=== PATIENT | female | born 1975 | race Caucasian/White ===

== ENCOUNTER → 2023-05-01 07:33 | Outpatient (REF) | payer OTHER, SELFPAY | LOC: EMG 07:33 | PROVIDERS: ATTENDING PHYSICIAN Psychiatry & Neurology Neurology; FAMILY PHYSICIAN Physician Assistant Medical | DX: R20.2 Paresthesia of skin (principal) | CPT/HCPCS: 95886; 95912 ==

== ENCOUNTER → 2023-11-06 08:29 | Outpatient (REF) | payer OTHER, SELFPAY | LOC: RAD 08:29 | PROVIDERS: ATTENDING PHYSICIAN Orthopaedic Surgery; FAMILY PHYSICIAN Physician Assistant Medical | DX: M84.352A Stress fracture, left femur, initial encounter for fracture (principal) | CPT/HCPCS: 78315; A9503 ==

== ENCOUNTER → 2023-12-04 08:01 | Outpatient (REF) | payer OTHER, SELFPAY | LOC: HWRAD 08:01 | PROVIDERS: ATTENDING PHYSICIAN Orthopaedic Surgery; FAMILY PHYSICIAN Physician Assistant Medical | DX: Z96.642 Presence of left artificial hip joint (principal); M79.605 Pain in left leg | CPT/HCPCS: 73700 ==

== ENCOUNTER 2023-12-07 15:27 | Emergency (ER) | payer OTHER, SELFPAY ==
[2023-12-07 15:35] VITALS: BP 136/75
--- NOTE | 2023-12-07 16:25 | ED.GENMED ---
History of Present Illness
General
Chief Complaint: Abdominal Pain
Source: patient
Exam Limitations: none
Time Seen by Provider: 12/07/23 15:54
Nursing documentation reviewed up to this point in time: agreed with
Travel History
Have you had any contact with someone who has COVID-19?: No
Do you have any symptoms of coronavirus? Fever > 100 degrees, chills, cough, shortness of breath, sore throat, loss of taste or smell, muscle aches, or headache?: No
History of Present Illness
History of Present Illness:
Patient to ED with complaint of LUQ abd pain. Pain has been ongoing x 1 week, worse this weekend. Denies fever/chill. +nausea, no vomiting or diarrhea. Brought self to ED for eval.
Past History
Past History
ED Past Medical History: Other (one previous concussion, migraines)
ED Past Surgical History: Gynecological (partial hysterectome) and Orthopedic (LTHR)
Social History
Tobacco: Non-smoker
Alcohol: None
Drug: None
Personal:
Living: with family
Employment: Employed
Review of Systems
Review of Systems
Allergies reviewed?: Yes
All Other Systems: ROS reviewed and negative except as documented in HPI and ROS
Constitutional: Reports no symptoms
EENT: Reports no symptoms
Respiratory: Reports no symptoms
Cardiac: Reports no symptoms
ABD/GI: Reports abdominal pain and nausea
: Reports no symptoms
Skin: Reports no symptoms
Neurological: Reports no symptoms
Psychiatric: Reports no symptoms
Phy Exam
General Physical Exam
General Presentation: well appearing and mild distress
General age: appears stated age
General Skin: warm and dry
General Habitus: normal
General Mental: alert
General Hydration: appears well hydrated
Gastrointestinal Exam
Gastrointestinal Exam: normal bowel sounds, soft, no organomegaly, non distended and no cva tenderness
Palpation: left upper quadrant: Moderate tenderness, left lower quadrant: Moderate tenderness, right upper quadrant: No tenderness and right lower quadrant: Moderate tenderness
Musculoskeletal Exam
Musculoskeletal Exam: full ROM
Skin Exam
Skin Exam: normal color and warm/dry
Psychiatric Exam
Psychiatric Exam: normal mood/affect
Course
Orders/Labs/Results
Orders:
Orders
12/07/23 15:37
EKG [Electrocardiogram (*1)] Urgent
Reason for Study: Abdominal Pain
EKG- Treatment ONCE
12/07/23 16:25
CT Abd/pel W Iv And Oral Contr Urgent
Comment:
Reason For Exam: left abd pain
Iohexol [Omnipaque] See Protocol PO NOW STA
12/07/23 16:30
Complete Blood Count/With Diff Urgent
Comprehensive Metabolic Panel Urgent
Lipase Urgent
Urinalysis Reflex To Culture Urgent
Date Specimen was Collected: 12/07/23
Time Specimen was Collected: 16:25
12/07/23 20:03
Amoxicillin 875 mg/Clav 125 mg [Augmentin 875 mg/125 mg] 1 tablet PO NOW STA
Abnormal Lab Results
12/07/23
16:30
MPV 10.7 H fL
(7.4-10.4)
Absolute Neuts (auto) 6.7 H 10^3/uL
(1.4-6.5)
Lymphocytes % 17.9 L %
(20.5-51.1)
Sodium 134 L mmol/L
(135-145)
Glucose 102 H mg/dl
(70-99)
12/07/23 16:30
12/07/23 16:30
Vital Signs
Initial and Last Documented VS:
Initial Vital Signs
Temp Pulse Resp BP Pulse Ox
97.9 F 102 17 136/75 99
12/07/23 15:35 12/07/23 15:35 12/07/23 15:35 12/07/23 15:35 12/07/23 15:35
Last Documented Vital Signs
Temp Pulse Resp BP Pulse Ox
97.9 F 70 15 125/71 98
12/07/23 15:35 12/07/23 20:00 12/07/23 20:00 12/07/23 20:00 12/07/23 20:00
*Radiology
Radiology exam reviewed: radiology read reviewed
*Pulse Oximetry
Patient hypoxic: no
*Critical Care Note
Total Time (30-74mins, 75-104mins- exclusive of procedures): Not Applicable
ED Attending Note
-
Portions of this chart may have been created with voice recognition software.� Occasional wrong word or��sound alike� substitutions may have occurred due to the inherent limitations of voice recognition software.
Discharge Plan
Departure
Patient Disposition: Home (Routine Discharge)
Date of Disposition: 12/07/23
Time of Disposition: 20:03
Patient with high blood pressure during this ER visit?: No
Condition: Good
Covid-19: Not Applicable
Discharge Problem:
Diverticulitis
Instructions: Clear Liquid Diet, Diverticulitis (DC)
Prescriptions:
New
amoxicillin-pot clavulanate 875-125 mg tablet
1 tab PO BID Qty: 20 0RF
No Action
famotidine 40 mg Tablet
40 mg PO DAILY
topiramate 200 mg Capsule,Extended Release 24hr
200 mg PO DAILY
Referrals:
Reg Marie PA-C [Family Provider] - Follow up in 2-3 days
Activity Restrictions/Additional Instructions:
Return to the emergency department immediately for fever/chills, increasing pain, vomiting, or for any further concerns.
Interventions
Interventions:
*Risk Screen - Suicide Last Done: 12/07/23 15:35
*General Assessment Last Done: 12/07/23 15:35
*Neglect/Abuse Screening Last Done: 12/07/23 15:35
*ED COVID-19 Vaccine History Last Done: 12/07/23 15:35
*Nursing Disposition Last Done: 12/07/23 20:30
TD-Iuarce-Fltjtflayw Assessment Last Done: 12/07/23 17:25
Discharge Date and Time
Discharge Date/Time: 12/07/23 20:31
Print Language: UPPER SORBIAN
[2023-12-07] MEDS: OMNIPAQUE 50 ML PO (16:31)
[2023-12-07 16:36] VITALS: BP 117/71
[2023-12-07 16:46] LABS: Urine Albumin Negative (Neg - Trace); Urine Bilirubin Negative (Negative); Urine Character Clear (Clear); Urine Color Yellow; Urine Glucose Negative (Negative); Urine Ketone Negative (Negative); Urine Leukocyte Negative (Negative); Urine Nitrite Negative (Negative); Urine Occult Blood Negative (Negative); Urine Specific Gravity 1.015 (<1.030); Urine Urobilinogen Negative (Neg - 1+)
[2023-12-07 16:47] LABS: % Basophils 0.4 % (0-2); % Immature Granulocytes 0.3 % (0-0.5); % Lymphocytes 17.9 % (20.5-51.1); % Monocytes 5.6 % (1.7-9.3); % Neutrophils 74.8 % (42.2-75.2); Absolute Eosinophils 0.1 10^3/uL (0-0.7); Absolute Lymphocytes 1.6 10^3/uL (1.2-3.4); Absolute Monocytes 0.5 10^3/uL (0.1-0.6); Absolute Neutrophils 6.7 10^3/uL (1.4-6.5); Hematocrit 40.4 % (37.0-47.0); Hemoglobin 14.5 g/dL (12.0-16.0); Mean Corp Hgb Conc. 35.9 g/dL (33.0-37.0); Mean Corpuscular Volume 83.6 fL (81.0-99.0); Mean Platelet Volume 10.7 fL (7.4-10.4); Nucleated Red Blood Cells % 0 %; Platelet Count 217 10^3/uL (130-400); Red Blood Cell Count 4.83 10^6/uL (4.20-5.40); Red Cell Dist. Width 12.9 % (11.5-14.5)
[2023-12-07 16:58] LABS: ALT (SGPT) 33 U/L (0-35); AST (SGOT) 26 U/L (14-36); Albumin 4.3 g/dl (3.5-5.0); Alkaline Phosphatase 70 U/L (38-126); Blood Urea Nitrogen 13 mg/dl (7-17); Calcium 9.3 mg/dl (8.4-10.2); Carbon Dioxide 26 mmol/L (22-30); Chloride 104 mmol/L (98-107); Glucose 102 mg/dl (70-99); Lipase 125 U/L (23-300); Potassium 3.7 mmol/L (3.5-5.1); Sodium 134 mmol/L (135-145); Total Bilirubin 1.2 mg/dl (0.2-1.3); eGFR > 60.00
[2023-12-07 17:00] VITALS: BP 114/66
[2023-12-07 18:00] VITALS: BP 115/80
[2023-12-07 19:21] VITALS: BP 122/59
[2023-12-07 20:00] VITALS: BP 125/71
[2023-12-07] MEDS: AUGMENTIN 875 MG/125 MG 1 TABLET PO (20:21)
== END 2023-12-07 20:31 | disposition home or self-care (01) ==
LOC: EMR 15:27
PROVIDERS: Nurse Practitioner; EMERGENCY PHYSICIAN Emergency Medicine; FAMILY PHYSICIAN Physician Assistant Medical
DX: K57.32 Diverticulitis of large intestine without perforation or abscess without bleeding (principal); R11.0 Nausea; G43.909 Migraine, unspecified, not intractable, without status migrainosus; Z87.820 Personal history of traumatic brain injury; Z88.8 Allergy status to other drugs, medicaments and biological substances
CPT/HCPCS: 99285; 74177; 80053; 81003; 83690; 85025; 93005; Q9967

== ENCOUNTER → 2024-02-12 06:50 | Outpatient (REF) | payer OTHER, SELFPAY | LOC: RAD 06:50 | PROVIDERS: ATTENDING PHYSICIAN Nurse Practitioner Adult Health | DX: I87.2 Venous insufficiency (chronic) (peripheral) (principal) | CPT/HCPCS: 93922; 93970 ==

== ENCOUNTER → 2024-04-22 09:23 | Outpatient (REF) | payer OTHER, SELFPAY ==
[2024-04-22 15:39] LABS: Mumps Virus IgG Positive; Rubeola (Measles) IgG Positive; Varicella Zoster IgG (VZV) Positive
[2024-04-22 19:07] LABS: Rubella Positive
[2024-04-24 07:10] LABS: Quantiferon Mitogen minus NIL 9.91 IU/mL; Quantiferon NIL 0.09 IU/mL; Quantiferon Plus TB1 minus NIL 0.02 IU/mL (<=0.34); Quantiferon TB Gold Plus Negative (Negative)
== END ==
LOC: REG 09:23
PROVIDERS: ATTENDING PHYSICIAN Nurse Practitioner Family; FAMILY PHYSICIAN Physician Assistant Medical
DX: Z23 Encounter for immunization (principal)
CPT/HCPCS: 36415; 86480; 86735; 86762; 86765; 86787

== ENCOUNTER → 2024-06-18 07:01 | Outpatient (REF) | payer OTHER, SELFPAY | LOC: RAD 07:01 | PROVIDERS: ATTENDING PHYSICIAN Student in an Organized Health Care Education/Training Program; FAMILY PHYSICIAN Physician Assistant Medical | DX: K57.32 Diverticulitis of large intestine without perforation or abscess without bleeding (principal); R10.32 Left lower quadrant pain | CPT/HCPCS: 74177; Q9967 ==

== ENCOUNTER 2024-07-06 15:25 | Emergency (ER) | payer OTHER, SELFPAY ==
[2024-07-06 15:32] VITALS: BP 144/75
--- NOTE | 2024-07-06 15:32 | ED.GENMED ---
ED Provider Triage
<Miranda Leiva PA-C - Last Filed: 07/06/24 15:37>
-
Patient seen by provider in Triage?: Seen in Triage
Attestation: A medical screening examination has been initiated by a qualified medical provider. Based on the assessment performed at this time, it has been determined that an emergent medical condition may exist and the patient has been informed
that further medical evaluation and possible additional diagnostic testing may be needed.
HPI: 49yoF here with LLQ pain. Has been having issues since May. CT abd on 06/18 showed colitis. GI started on Cipro/Flagyl last week for presumed diverticulitis. Here with ongoing pain. No f/c.
GENERAL: Alert , in no apparent distress
EYE: No visual abnormalities.
NECK: Trachea midline
ENT: No visible abnormalities.
LUNGS: No acute respiratory distress
NEUROLOGICAL: Alert and oriented
SKIN: Skin intact. No visible changes.
MUSCULOSKELETAL: Moving extremities normally
PSYCH: Normal and appropriate interaction.
This is a medical evaluation conducted in person to initiate diagnostic evaluation and provide initial therapeutics. Please see further documentation by the treating clinician.
Abdominal labs and CT abdomen with IV/PO contrast ordered.
History of Present Illness
<Miranda Leiva PA-C - Last Filed: 07/06/24 15:37>
General
Chief Complaint: Abdominal Pain
Time Seen by Provider: 07/06/24 19:22
<JUAN R Back - Last Filed: 07/06/24 19:49>
General
Source: patient
Exam Limitations: none
History of Present Illness
History of Present Illness:
This is a 49 year old female that comes in with c/o left sided abd pain. States that she has had increased abd pain for the past few days. States that she is being treated for Diverticulitis. Last week she was started on Cipro and Flagyl on
Friday. States that the pain was worse and she can't eat much. States that she has had diarrhea but had stool testing and this was negative. Denies any fever, chills, chest pain, SOB, nausea, vomiting, headache, dizziness, urinary burning.
Past History
<Miranda Leiva PA-C - Last Filed: 07/06/24 15:37>
Past History
ED Past Medical History: Other (one previous concussion, migraines)
ED Past Surgical History: Gynecological (partial hysterectome) and Orthopedic (LTHR)
Social History
Tobacco: Non-smoker
Alcohol: None
Drug: None
Personal:
Living: with family
Employment: Employed
<JUAN R Back - Last Filed: 07/06/24 19:49>
Past History
ED Past Medical History: Other (Diverticulitis, Migraines, Concussion)
ED Past Surgical History: Gynecological (Partial hysterectomy) and Orthopedic (left hip replacement)
Review of Systems
<JUAN R Back - Last Filed: 07/06/24 19:49>
Review of Systems
All Other Systems: ROS reviewed and negative except as documented in HPI and ROS
Constitutional: Reports no symptoms; Denies fever or chills
EENT: Reports no symptoms
Respiratory: Reports no symptoms; Denies cough or trouble breathing
Cardiac: Reports no symptoms; Denies chest pain
ABD/GI: Reports abdominal pain and diarrhea; Denies nausea or vomiting
: Reports no symptoms; Denies dysuria, frequency or urgency
Musculoskeletal: Reports no symptoms
Skin: Reports no symptoms
Neurological: Reports no symptoms; Denies dizzy or headache
Psychiatric: Reports no symptoms
Phy Exam
<JUAN R Back - Last Filed: 07/06/24 19:49>
General Physical Exam
General Presentation: well appearing and no apparent distress
General age: appears stated age
General Skin: warm and dry
General Habitus: normal
General Mental: alert
General Hydration: appears well hydrated
ENT Exam
ENT Exam: TM's normal, pharynx normal and neck supple
Eye Exam
Eye Exam: EOMI
Cardiovascular Exam
Cardiovascular Exam: regular rate/rhythm, no edema, no murmur and normal peripheral pulses
Pulmonary Exam
Pulmonary Exam: lungs clear, no respiratory distress, no rales, chest non tender, no crackles, no rhonchi, no wheezing and no cough
Gastrointestinal Exam
Gastrointestinal Exam: normal bowel sounds, soft, no organomegaly, no pulsatile mass, non distended and tender (Left lower quadrant tenderness with palpation)
Musculoskeletal Exam
Musculoskeletal Exam: full ROM and no edema
Skin Exam
Skin Exam: normal color, warm/dry, no rash and no petechia
Course
<Miranda Leiva PA-C - Last Filed: 07/06/24 15:37>
Orders/Labs/Results
Orders:
Orders
07/06/24 15:36
CT Abd/pel W Iv And Oral Contr Urgent
Comment:
Reason For Exam: LLQ pain
Iohexol [Omnipaque] See Protocol PO NOW STA
07/06/24 15:43
Complete Blood Count/With Diff Urgent
Comprehensive Metabolic Panel Urgent
Lipase Urgent
Abnormal Lab Results
07/06/24
15:43
MPV 11.0 H fL
(7.4-10.4)
Carbon Dioxide 21 L mmol/L
(22-30)
Glucose 167 H mg/dl
(70-99)
ALT 36 H U/L
(0-35)
07/06/24 15:43
07/06/24 15:43
Vital Signs
Initial and Last Documented VS:
Initial Vital Signs
Temp Pulse Resp BP Pulse Ox
98.6 F 114 19 144/75 99
07/06/24 15:32 07/06/24 15:32 07/06/24 15:32 07/06/24 15:32 07/06/24 15:32
Last Documented Vital Signs
Temp Pulse Resp BP Pulse Ox
98.6 F 114 19 144/75 99
07/06/24 15:32 07/06/24 15:32 07/06/24 15:32 07/06/24 15:32 07/06/24 15:32
<JUAN R Back - Last Filed: 07/06/24 19:49>
Orders/Labs/Results
Orders:
Orders
07/06/24 15:36
CT Abd/pel W Iv And Oral Contr Urgent
Comment:
Reason For Exam: LLQ pain
Iohexol [Omnipaque] See Protocol PO NOW STA
07/06/24 15:43
Complete Blood Count/With Diff Urgent
Comprehensive Metabolic Panel Urgent
Lipase Urgent
Abnormal Lab Results
07/06/24
15:43
MPV 11.0 H fL
(7.4-10.4)
Carbon Dioxide 21 L mmol/L
(22-30)
Glucose 167 H mg/dl
(70-99)
ALT 36 H U/L
(0-35)
07/06/24 15:43
07/06/24 15:43
Hyperglycemia, ALT very slightly elevlated. Lipase normal at 154
Vital Signs
Initial and Last Documented VS:
Initial Vital Signs
Temp Pulse Resp BP Pulse Ox
98.6 F 114 19 144/75 99
07/06/24 15:32 07/06/24 15:32 07/06/24 15:32 07/06/24 15:32 07/06/24 15:32
Last Documented Vital Signs
Temp Pulse Resp BP Pulse Ox
98.6 F 114 19 144/75 99
07/06/24 15:32 07/06/24 15:32 07/06/24 15:32 07/06/24 15:32 07/06/24 15:32
<JUAN R Back - Last Filed: 07/06/24 19:49>
MDM/Problems Addressed
Differential Diagnosis Includes:
worsening Diverticulitis. abd abscess, abd pain due to degenerative disc
MDM/Problems Addressed:
This is a 49 year old female that come sin with c/o left lower abd pain. States that she is being treated for Diverticulitis since last Friday. Patient is on Cipro and FLagyl.
Will check labs and get CT scan.
Explained to patient that her CT scan is normal. Blood work shows that her blood sugar is elevated but this was nonfasting. Patient just had stool culture done and they were normal. Encouraged patient to stay away form milk and mil products as long
as she has diarrhea. Follow up with the family doctor. Return with fever, increased or changing pain, or any other concerns.
Chronic conditions affecting care:
Diverticulitis.
Acute Exacerbation and/or Progression of Chronic Illness:
Diverticulitis
<JUAN R Back - Last Filed: 07/06/24 19:49>
*Radiology
Radiology exam reviewed: radiology read reviewed (CT-NO acute pathhology of the abdomen or pelvis identified. Stable small hepatic cyst. )
*Pulse Oximetry
Patient hypoxic: no
*EKG
Interpreted by ED Provider?: NA
Rate: EKG- N/A
*Dolly Driver Interpretation
Rate: Dolly Driver- N/A
*Critical Care Note
Total Time (30-74mins, 75-104mins- exclusive of procedures): Not Applicable
ED Attending Note
<Miranda Leiva PA-C - Last Filed: 07/06/24 15:37>
-
Portions of this chart may have been created with voice recognition software.� Occasional wrong word or��sound alike� substitutions may have occurred due to the inherent limitations of voice recognition software.
Discharge Plan
Departure
Disposition: Home (Routine Discharge)
Date of Disposition: 07/06/24
Time of Disposition: 19:47
Patient with high blood pressure during this ER visit?: Yes
Condition: Good
Covid-19: Not Applicable
Discharge Problem:
Abdominal pain
Instructions: Abdominal Pain, BLOOD PRESSURE
Prescriptions:
No Action
famotidine 40 mg Tablet
40 mg PO DAILY
topiramate 200 mg Capsule,Extended Release 24hr
200 mg PO DAILY
amoxicillin-pot clavulanate 875-125 mg tablet
1 tab PO BID Qty: 20 0RF
Additional Instructions:
As discussed, your blood work shows that your blood sugar is elevated. Please increase your water intake to 8-8oz glasses daily. Continue with the antibiotics that you are taking. Your CT of the abd/pelvis is negative for any acute disease. There
are some bony degenerative changes noted. This may also be causing your abd pain as the nerves form the back wrap around to the abd and can cause abd pain. You may use Tylenol or Ibuprofen for pain. Please stay away from milk and milk products as
long as you have diarrhea. Follow up with the family doctor for further evaluation. IF YOU HAVE FEVER, INCREASED OR CHANGING PAIN, OR YOU HAVE ANY OTHER CONCERNS PLEASE RETURN TO THE EMERGENCY ROOM.
Interventions
Interventions:
*Risk Screen - Suicide Last Done: 07/06/24 15:35
*General Assessment Last Done: 07/06/24 15:35
*Neglect/Abuse Screening Last Done: 07/06/24 15:35
Discharge Date and Time
Print Language: BULGARIAN
[2024-07-06] MEDS: OMNIPAQUE 50 ML PO (15:39)
[2024-07-06 16:05] LABS: % Basophils 0.8 % (0-2); % Eosinophils 1.7 % (0-6); % Immature Granulocytes 0.3 % (0-0.5); % Lymphocytes 25.5 % (20.5-51.1); % Monocytes 7.9 % (1.7-9.3); % Neutrophils 63.8 % (42.2-75.2); Absolute Basophils 0.1 10^3/uL (0-0.2); Absolute Eosinophils 0.1 10^3/uL (0-0.7); Absolute Lymphocytes 1.7 10^3/uL (1.2-3.4); Absolute Monocytes 0.5 10^3/uL (0.1-0.6); Absolute Neutrophils 4.2 10^3/uL (1.4-6.5); Hematocrit 42.1 % (37.0-47.0); Hemoglobin 14.7 g/dL (12.0-16.0); Mean Corp Hgb Conc. 34.9 g/dL (33.0-37.0); Mean Corpuscular Hgb 29.8 pg (27.0-31.0); Mean Corpuscular Volume 85.4 fL (81.0-99.0); Nucleated Red Blood Cells % 0 %; Platelet Count 247 10^3/uL (130-400); Red Blood Cell Count 4.93 10^6/uL (4.20-5.40); Red Cell Dist. Width 13.3 % (11.5-14.5); White Blood Cell Count 6.6 10^3/uL (4.8-10.8)
[2024-07-06 16:18] LABS: ALT (SGPT) 36 U/L (0-35); AST (SGOT) 36 U/L (14-36); Albumin 4.5 g/dl (3.5-5.0); Alkaline Phosphatase 63 U/L (38-126); Blood Urea Nitrogen 13 mg/dl (7-17); Calcium 9.1 mg/dl (8.4-10.2); Carbon Dioxide 21 mmol/L (22-30); Chloride 106 mmol/L (98-107); Glucose 167 mg/dl (70-99); Lipase 154 U/L (23-300); Potassium 3.7 mmol/L (3.5-5.1); Sodium 139 mmol/L (135-145); Total Bilirubin 0.7 mg/dl (0.2-1.3); eGFR > 60.00
[2024-07-06 20:00] VITALS: BP 117/70
== END 2024-07-06 20:05 | disposition home or self-care (01) ==
LOC: EMR 15:25
PROVIDERS: Physician Assistant; EMERGENCY PHYSICIAN Emergency Medicine; FAMILY PHYSICIAN Physician Assistant Medical
DX: R10.32 Left lower quadrant pain (principal)
CPT/HCPCS: 99284; 74177; 80053; 83690; 85025; Q9967

== ENCOUNTER 2024-09-06 06:27 | Day surgery (SDC) | payer OTHER, SELFPAY | END 2024-09-06 16:36 | disposition home or self-care (01) | LOC: GI 06:27 | PROVIDERS: ATTENDING PHYSICIAN Student in an Organized Health Care Education/Training Program | DX: R93.3 Abnormal findings on diagnostic imaging of other parts of digestive tract (principal); K64.4 Residual hemorrhoidal skin tags; K64.0 First degree hemorrhoids; K57.30 Diverticulosis of large intestine without perforation or abscess without bleeding; K57.32 Diverticulitis of large intestine without perforation or abscess without bleeding; R19.4 Change in bowel habit | CPT/HCPCS: 45378 ==

== ENCOUNTER → 2024-11-25 12:42 | Outpatient (REF) | payer OTHER, SELFPAY ==
[2024-11-25 13:00] VITALS: BP 110/68; BP_SYST 68
== END ==
LOC: RADI 12:42
PROVIDERS: ATTENDING PHYSICIAN Orthopaedic Surgery Hand Surgery; FAMILY PHYSICIAN Physician Assistant Medical
DX: M25.511 Pain in right shoulder (principal); M19.011 Primary osteoarthritis, right shoulder
CPT/HCPCS: 64490

== ENCOUNTER 2025-01-31 06:30 | Day surgery (SDC) | payer OTHER, SELFPAY ==
[2025-01-31 13:04] LABS: Glucose - Point of Care 93 mg/dl (70-99)
== END 2025-01-31 15:18 | disposition home or self-care (01) ==
LOC: GI 06:30
PROVIDERS: ATTENDING PHYSICIAN Student in an Organized Health Care Education/Training Program
DX: Z12.11 Encounter for screening for malignant neoplasm of colon (principal); K64.4 Residual hemorrhoidal skin tags; K57.30 Diverticulosis of large intestine without perforation or abscess without bleeding; K64.0 First degree hemorrhoids; Z80.0 Family history of malignant neoplasm of digestive organs
CPT/HCPCS: G0105; 82962

== ENCOUNTER → 2025-03-10 09:38 | Outpatient (REF) | payer OTHER, SELFPAY ==
[2025-03-10 10:18] LABS: Hematocrit 43.0 % (37.0-47.0); Hemoglobin 14.7 g/dL (12.0-16.0); Mean Corp Hgb Conc. 34.2 g/dL (33.0-37.0); Mean Corpuscular Volume 86.9 fL (81.0-99.0); Nucleated Red Blood Cells % 0 %; Platelet Count 227 10^3/uL (130-400); Red Cell Dist. Width 13.3 % (11.5-14.5)
[2025-03-10 10:54] LABS: Blood Urea Nitrogen 12 mg/dl (7-17); Calcium 9.9 mg/dl (8.4-10.2); Carbon Dioxide 23 mmol/L (22-30); Chloride 109 mmol/L (98-107); Glucose 108 mg/dl (70-99); Magnesium 2.2 mg/dl (1.6-2.3); Potassium 4.4 mmol/L (3.5-5.1); Sodium 141 mmol/L (135-145); eGFR > 60.00
[2025-03-10 12:09] LABS: TSH 1.13 uIU/ml (0.47-4.68)
== END ==
LOC: REG 09:38
PROVIDERS: ATTENDING PHYSICIAN Internal Medicine Cardiovascular Disease; FAMILY PHYSICIAN Physician Assistant Medical
DX: R00.2 Palpitations (principal)
CPT/HCPCS: 36415; 80048; 83735; 84443; 85025

== ENCOUNTER 2025-04-07 10:27 | Emergency (ER) | payer OTHER, SELFPAY ==
[2025-04-07 10:29] VITALS: BP 147/79
--- NOTE | 2025-04-07 10:53 | ED.GENMED ---
History of Present Illness
General
Chief Complaint: Abdominal Symptoms
Time Seen by Provider: 04/07/25 10:50
History of Present Illness
History of Present Illness:
FOCUSED PAST MEDICAL HISTORY
- Diverticular disease
REVIEW OF OLD RECORDS
- The patient had colonoscopy as follow-up of diverticulitis (had in December 2023 and in June 2024) and mild diverticulosis was noted at that time along with nonbleeding internal hemorrhoid. She had a CT in July 2024 that showed no sign of
diverticulitis.
Note:
CHIEF COMPLAINT(S)
Abdominal pain.
HISTORY OF PRESENT ILLNESS
The patient is a 49-year-old female presenting with approximately 10 days of abdominal pain, primarily located in the left lower quadrant. She describes the character of the pain as similar to previous episodes she has experienced. She contacted her
community relations representative, who recommended a liquid diet. Despite this, the pain has been worsening. She reports no vomiting or diarrhea. There is no possibility of due to a prior hysterectomy.
PAST MEDICAL AND SURGICAL HISTORY
History of hysterectomy.
EXTERNAL RECORDS REVIEWED
According to previous chemistry results, her white blood cell count is normal at 6.0. Other chemistries are unremarkable. Imaging results were obtained, although specifics werent discussed.
DIFFERENTIAL DIAGNOSIS
The Differential Diagnosis includes, in no particular order and is not limited to:
- Diverticulitis
- Ovarian cyst
- Irritable bowel syndrome
- Appendicitis
- Colitis
- Gastroenteritis
- Crohns disease
- Pelvic inflammatory disease
- Renal colic
- Abdominal hernia
INDEPENDENT REVIEW OF LABS AND INTERPRETATION OF TESTS
My independent review of the white blood cell count is normal at 6.0.
My independent review of chemistry panel results is unremarkable.
MEDICAL DECISION MAKING
-Complexity of Data Reviewed: Chronic conditions affecting care including history of hysterectomy.
-Data:
Category 1
- External record reviewed: Patients prior chemistry results, noting a normal white blood cell count and unremarkable chemistries.
Category 2
- Testing result interpretation: My independent review of the white blood cell count indicates it is normal.
- Discussion of Management: Gastroenterologists recommendation on dietary changes provided.
- Risk: Consideration of Admission/Observation: Escalation of care including potential imaging was considered given the complexity of the patients presenting complaint, but ultimately decided on outpatient management with close follow up
consideration.
RADIOLOGY
- CT imaging obtained and personally reviewed and I agree with radiologist that there is no convincing evidence for diverticulitis
SUMMARY OF ENCOUNTER
The patient, a 49-year-old female, visited the emergency department due to worsening abdominal pain in the left lower quadrant, which she described as similar to previous episodes possibly linked to diverticulitis. She had a recent contact with her
gastroenterologists nurse practitioner, who recommended a liquid diet. A CT scan was conducted but showed no acute findings indicating diverticulitis, though it noted a cyst in the liver. Blood work, including a white blood cell count, was normal.
Given the absence of acute findings on imaging or labs, the patient was managed conservatively without the administration of antibiotics, which she declined. Instead, outpatient follow-up with her primary care or community relations representative was advised.
DISPOSITION
Discharge
ASSESSMENT
The patients symptoms of abdominal pain are consistent with prior episodes suggestive of diverticulitis, although imaging and labs did not support an acute diagnosis at this time. The differential diagnosis remains broad but includes functional
bowel issues or a muscular etiology.
PLAN
To discharge the patient with instructions to follow up with her primary care physician or community relations representative for further evaluation. Encourage monitoring the symptoms and return if symptoms worsen or new symptoms develop.
INDEPENDENT REVIEW OF LABS AND INTERPRETATION OF TESTS
My independent review of the white blood cell count is normal.
My independent review of the CT scan shows no acute abnormalities suggestive of diverticulitis; however, a cyst in the liver was noted- This was noted in the past
PATIENT EDUCATION AND COUNSELING
The patient was advised on the nature of her symptoms and the findings from the imaging and laboratory tests. She was informed about the lack of acute diverticulitis and the presence of a liver cyst. Recommendations were made for diet modifications
and to monitor her symptoms.
FOLLOW-UP INSTRUCTIONS
The patient was instructed to schedule a follow-up appointment with her community relations representative or primary care physician to further evaluate and manage her abdominal symptoms.
MEDICAL DECISION MAKING
-Complexity of Data Reviewed: Chronic conditions affecting care include a history of hysterectomy. The differential diagnosis includes diverticulitis, ovarian cyst, irritable bowel syndrome, appendicitis, colitis, gastroenteritis, Crohns disease,
pelvic inflammatory disease, renal colic, abdominal hernia.
-Data:
Category 1
External record reviewed: Prior results noted a normal white blood cell count and unremarkable chemistries.
Category 2
My independent interpretation of the CT scan indicates no acute findings but notes the presence of a liver cyst.
Category 3
Discussion of management considered with inputs from a gastroenterologists nurse practitioner suggesting a liquid diet.
-Risk:
Consideration of Admission/Observation: Escalation of care including admission/observation was considered given the complexity and risk of the patients presenting complaint. However, ultimately I feel the patient is safe for outpatient management
with close follow-up. Reasoning: Work-up reassuring, does not reveal any acute life/organ-threatening processes, patients symptoms well controlled upon reevaluation, reexamination is reassuring, vitals are stable, patient agreeable with discharge,
reliable for follow-up.
DIAGNOSIS
Abdominal pain, unspecified (ICD-10: R10.9)
Past History
Past History
ED Past Medical History: Other (Diverticulitis, Migraines, Concussion)
ED Past Surgical History: Gynecological (Partial hysterectomy) and Orthopedic (left hip replacement)
Social History
Tobacco: Non-smoker
Alcohol: None
Drug: None
Personal:
Living: with family
Employment: Employed
Phy Exam
Physical Exam
Physical Exam:
See HPI
Course
Orders/Labs/Results
Orders:
Orders
04/07/25 10:58
CT Abd/pelvis W Iv Cont Urgent
Comment:
Reason For Exam: L pain; prior diverticulitis; had hysterectomy
0.9% Sodium Chloride 1000 ml [Nss] 1,000 ml IV BOLUS
04/07/25 11:04
Complete Blood Count/With Diff Urgent
04/07/25 11:05
Comprehensive Metabolic Panel Urgent
Abnormal Lab Results
04/07/25 04/07/25
11:04 11:05
MPV 10.9 H fL
(7.4-10.4)
Chloride 108 H mmol/L
(98-107)
Total Bilirubin 1.4 H mg/dl
(0.2-1.3)
04/07/25 11:04
04/07/25 11:05
Vital Signs
Initial and Last Documented VS:
Initial Vital Signs
Temp Pulse Resp BP Pulse Ox
36.7 C 84 16 147/79 98
04/07/25 10:04/07/25 10:04/07/25 10:29 04/07/25 10:29 04/07/25 10:29
Last Documented Vital Signs
Temp Pulse Resp BP Pulse Ox
36.7 C 84 16 147/79 98
04/07/25 10:04/07/25 10:04/07/25 10:04/07/25 10:29 04/07/25 10:54
*Pulse Oximetry
SaO2: 98
Oxygen Mode of Delivery: Room air
Patient hypoxic: no
*Critical Care Note
Total Time (30-74mins, 75-104mins- exclusive of procedures): Not Applicable
ED Attending Note
-
Portions of this chart may have been created with voice recognition software.� Occasional wrong word or��sound alike� substitutions may have occurred due to the inherent limitations of voice recognition software.
Discharge Plan
Departure
Prescriptions:
No Action
famotidine 40 mg Tablet
40 mg PO DAILY
topiramate 200 mg Capsule,Extended Release 24hr
200 mg PO DAILY
amoxicillin-pot clavulanate 875-125 mg tablet
1 tab PO BID Qty: 20 0RF
Referrals:
Severo Díaz PA-C [Family Provider]
Interventions
Interventions:
*Risk Screen - Suicide Last Done: 04/07/25 10:29
*General Assessment Last Done: 04/07/25 10:56
*Neglect/Abuse Screening Last Done: 04/07/25 10:29
*ED- Fall Risk Assessment Last Done: 04/07/25 10:56
*ED COVID-19 Vaccine History Last Done: 04/07/25 10:58
OG-Bzomtc-Fwxfaswtga Assessment Last Done: 04/07/25 10:55
Discharge Date and Time
Print Language: IRANIAN
[2025-04-07 11:07] VITALS: BMI 30.8
[2025-04-07] MEDS: NSS 1000 IV (11:10)
[2025-04-07 11:20] LABS: Hematocrit 41.7 % (37.0-47.0); Hemoglobin 14.1 g/dL (12.0-16.0); Mean Corp Hgb Conc. 33.8 g/dL (33.0-37.0); Mean Corpuscular Volume 86.2 fL (81.0-99.0); Nucleated Red Blood Cells % 0 %; Platelet Count 217 10^3/uL (130-400); Red Cell Dist. Width 13.2 % (11.5-14.5)
[2025-04-07 11:24] LABS: ALT (SGPT) 24 U/L (0-35); AST (SGOT) 23 U/L (14-36); Albumin 4.6 g/dl (3.5-5.0); Alkaline Phosphatase 66 U/L (38-126); Blood Urea Nitrogen 14 mg/dl (7-17); Calcium 9.5 mg/dl (8.4-10.2); Carbon Dioxide 24 mmol/L (22-30); Chloride 108 mmol/L (98-107); Estimated Creatinine Clearance 76 ml/min; Glucose 94 mg/dl (70-99); Potassium 4.1 mmol/L (3.5-5.1); Sodium 140 mmol/L (135-145); Total Protein 7.1 g/dl (6.3-8.2); eGFR > 60.00
[2025-04-07 12:00] VITALS: BP 112/66
[2025-04-07 13:51] VITALS: BP 109/59
== END 2025-04-07 13:53 | disposition home or self-care (01) ==
LOC: EMR 10:27
PROVIDERS: EMERGENCY PHYSICIAN Emergency Medicine; FAMILY PHYSICIAN Physician Assistant Medical
DX: R10.9 Unspecified abdominal pain (principal); K64.8 Other hemorrhoids; K76.89 Other specified diseases of liver; Z96.642 Presence of left artificial hip joint; Z87.820 Personal history of traumatic brain injury
CPT/HCPCS: 99284; 96360; 74177; 80053; 85025; Q9967

== ENCOUNTER 2025-07-07 06:11 | Inpatient (IN) | payer OTHER, SELFPAY ==
[2025-06-23 08:52] LABS: Hematocrit 41.7 % (37.0-47.0); Hemoglobin 14.2 g/dL (12.0-16.0); Mean Corp Hgb Conc. 34.1 g/dL (33.0-37.0); Mean Corpuscular Volume 84.4 fL (81.0-99.0); Platelet Count 229 10^3/uL (130-400); Red Cell Dist. Width 13.1 % (11.5-14.5)
[2025-06-23 09:02] LABS: INR 0.97; PT 13.4 Sec (11.4-14.6)
[2025-06-23 09:03] LABS: APTT 26.9 Sec (23.4-35.0)
[2025-06-23 10:01] LABS: Glycohemoglobin (HgbA1c) 5.3 % (4.0-5.9)
[2025-06-23 10:02] LABS: ALT (SGPT) 17 U/L (0-35); AST (SGOT) 19 U/L (14-36); Albumin 4.4 g/dl (3.5-5.0); Alkaline Phosphatase 59 U/L (38-126); Blood Urea Nitrogen 12 mg/dl (7-17); Calcium 9.0 mg/dl (8.4-10.2); Carbon Dioxide 23 mmol/L (22-30); Chloride 106 mmol/L (98-107); Glucose 90 mg/dl (70-99); Potassium 3.6 mmol/L (3.5-5.1); Sodium 136 mmol/L (135-145); Total Protein 7.1 g/dl (6.3-8.2); eGFR > 60.00
[2025-06-23 13:10] VITALS: BMI 27.7
[2025-07-07] VITALS (22 sets, daily range): BP systolic 20–131; BP diastolic 54–73; BMI 27.7
[2025-07-07] MEDS: CELEBREX 200 MG PO (07:02)
[2025-07-07] MEDS: NEURONTIN 600 MG PO (07:03)
[2025-07-07] MEDS: RELISTOR 12 MG SC (07:03)
[2025-07-07] MEDS: HEPARIN 5000 UNITS SC (07:03)
[2025-07-07] MEDS: TYLENOL 1000 MG PO (07:03)
[2025-07-07] MEDS: NORMOSOL-R/PLASMALYTE-A 1000 IV ×3 (07:20→23:36)
--- NOTE | 2025-07-07 10:21 | W.IMMPOSTOP ---
Surgical Immed Post Op Note
-
Primary Surgeon: Wendy Samayoa MD
Assisting Surgeon: Placido Gomes, NICHOLAS; Mary Gao, FLOORPERSON; Cristopher Haddad, KAYY
Pre-op Diagnosis: sigmoid diverticulitis
Post-op Diagnosis: same
Procedure Performed: robotic sigmiodectomy
Anesthesia Type: general plus local
Specimen / Cultures: sigmoid colon
Estimated Blood Loss: 20 cc
Complications: no immediate
Operative Findings: 1) redundant sigmoid with some adhesions in pelvis 2)?vaginal prolapse
#19 Lc in pelvis.
[place] in bladder.
Will send to med surg.
[2025-07-07] MEDS: DILAUDID 0.25 MG IV ×2 (10:53→11:05)
[2025-07-07 11:10] LABS: Hematocrit 41.3 % (37.0-47.0); Hemoglobin 13.9 g/dL (12.0-16.0); Mean Corp Hgb Conc. 33.7 g/dL (33.0-37.0); Mean Corpuscular Volume 87.9 fL (81.0-99.0); Nucleated Red Blood Cells % 0 %; Platelet Count 201 10^3/uL (130-400); Red Cell Dist. Width 12.6 % (11.5-14.5)
[2025-07-07] MEDS: INVANZ IV (11:18)
[2025-07-07 11:27] LABS: Blood Urea Nitrogen 13 mg/dl (7-17); Calcium 7.7 mg/dl (8.4-10.2); Carbon Dioxide 22 mmol/L (22-30); Chloride 105 mmol/L (98-107); Estimated Creatinine Clearance 77 ml/min; Glucose 187 mg/dl (70-99); Magnesium 2.2 mg/dl (1.6-2.3); Potassium 3.6 mmol/L (3.5-5.1); Sodium 136 mmol/L (135-145); eGFR > 60.00
[2025-07-07] MEDS: TYLENOL PO (14:15)
--- NOTE | 2025-07-07 14:22 | PTCARENOTE ---
Pt received from PACU. AAOx3. Med surg orders. Regular apical, HR 70s. SpO2 97% on room air. BP 101/55. Abdominal lap sites x3 and transverse incision approximated with surgical adhesive present. RLQ ALFRED drain dressing CDI. Pt denies any pain at this
time. IVF infusing per order.
[2025-07-07] MEDS: TYLENOL 650 MG PO ×3 (16:22→23:35)
[2025-07-07] MEDS: TORADOL 10 MG IV (19:43)
[2025-07-07] MEDS: TOPAMAX 75 MG PO (19:43)
[2025-07-08] MEDS: TORADOL 10 MG IV ×4 (01:56→20:11)
[2025-07-08 03:13] VITALS: BP 102/57
[2025-07-08 04:30] VITALS: BMI 27.7
[2025-07-08] MEDS: TYLENOL 650 MG PO ×5 (04:30→20:11)
[2025-07-08] MEDS: PROTONIX 40 MG PO (07:20)
[2025-07-08] MEDS: INVANZ 60 MG IV (07:20)
[2025-07-08] MEDS: CRESTOR 5 MG PO (07:20)
[2025-07-08] MEDS: TOPAMAX 75 MG PO ×2 (07:21→20:10)
[2025-07-08] MEDS: RELISTOR 12 MG SC (07:22)
[2025-07-08 08:00] VITALS: BP 109/62
[2025-07-08 08:07] LABS: Hematocrit 35.7 % (37.0-47.0); Hemoglobin 12.3 g/dL (12.0-16.0); Mean Corp Hgb Conc. 34.5 g/dL (33.0-37.0); Mean Corpuscular Volume 86.7 fL (81.0-99.0); Nucleated Red Blood Cells % 0 %; Platelet Count 207 10^3/uL (130-400); Red Cell Dist. Width 12.9 % (11.5-14.5)
[2025-07-08 08:16] LABS: Blood Urea Nitrogen 9 mg/dl (7-17); Calcium 7.8 mg/dl (8.4-10.2); Carbon Dioxide 23 mmol/L (22-30); Chloride 109 mmol/L (98-107); Estimated Creatinine Clearance 87 ml/min; Glucose 98 mg/dl (70-99); Magnesium 2.3 mg/dl (1.6-2.3); Potassium 3.8 mmol/L (3.5-5.1); Sodium 133 mmol/L (135-145); eGFR > 60.00
--- NOTE | 2025-07-08 08:49 | W.PN.CRS1 ---
Today's Communication / Plan
-
fulls to low residue
OOB
Lovenox
Assessment/Plan
-
POD#1 robotic sigmoidectomy (sigmoid diverticulitis)
Vitals: normal
Hgb 12.3, WBC 11.3
-Advance to full liquids
-DC IVFs when tolerating po intake
-OOB as tolerated
-DC enamorado
-OR pathology pending
-Start lovenox for DVT prophylaxis. TEDS/SCDS in place.
-If tolerates fulls later, advance to low residue
-Pain control: Tylenol/Toradol standing, Dilaudid PRN
-Maintain ALFRED drain until d/c
Subjective Data
Procedure
07/07/2025- robotic sigmoidectomy
Subjective Data
Date of Service: July 08, 2025
Patient states she has no nausea or vomiting. Her pain is controlled. She is having bowel movements. No blood in the stool. No flatus yet.
Objective Data
-
Vital Signs
Temp Pulse Resp BP Pulse Ox
98.8 F 60 18 102/57 97
07/08/25 03:13 07/08/25 03:13 07/08/25 03:13 07/08/25 03:13 07/08/25 03:13
Intake & Output
07/07/25 07/08/25 07/09/25
06:59 06:59 06:59
Intake Total 1979 / 1979
Output Total 1520 / 1520
Balance 460 / 460
Intake:
Oral fluids 720 / 720
IV fluids (Total) 1260 / 1260
Normosol 300 / 300
Output:
Drain Output (Total)
Right Lower Abdomen Lonnie-
[place]
Urine, [place] 1425 / 1425
Lab Results
07/08/25 07:30
07/08/25 07:30
Physical Exam
-
General: No Acute Distress and AOx3
Abdomen: Soft, Non Distended and Non Tender
Skin: Warm and Dry
Incision: Clear, Dry, Intact
[2025-07-08 12:02] VITALS: BP 104/62
[2025-07-08] MEDS: NORMOSOL-R/PLASMALYTE-A IV (12:59)
--- NOTE | 2025-07-08 15:24 | CM ---
Met with patient at bedside
pharmacy verified: [facility] @ [address] [facility]
Lives w/ ; multilevel home; her bedroom and bath on 1st floor; bath has tub w/ shower
Independent with ambulation, stairs, and ADLs; works parts assembler; drives
NO DME
NO SNF utilization history; home health services in 2019 after hip procedure; does not remember name of HH agency
will transport home
Plan:Discharge to home when medically stable; Case Management will monitor for needs
[2025-07-08 16:00] VITALS: BP 98/60
[2025-07-08 23:00] VITALS: BP 102/50
[2025-07-09] MEDS: TYLENOL PO (00:12)
[2025-07-09] MEDS: TORADOL 10 MG IV ×2 (03:09→08:01)
[2025-07-09] MEDS: TYLENOL 650 MG PO ×2 (03:10→07:59)
[2025-07-09 05:51] LABS: Hematocrit 35.2 % (37.0-47.0); Hemoglobin 12.1 g/dL (12.0-16.0); Mean Corp Hgb Conc. 34.4 g/dL (33.0-37.0); Mean Corpuscular Volume 85.9 fL (81.0-99.0); Nucleated Red Blood Cells % 0 %; Platelet Count 198 10^3/uL (130-400); Red Cell Dist. Width 13.1 % (11.5-14.5)
[2025-07-09 05:53] VITALS: BMI 27.6
[2025-07-09 06:29] LABS: Blood Urea Nitrogen 8 mg/dl (7-17); Calcium 8.3 mg/dl (8.4-10.2); Carbon Dioxide 22 mmol/L (22-30); Chloride 111 mmol/L (98-107); Estimated Creatinine Clearance 86 ml/min; Glucose 104 mg/dl (70-99); Potassium 4.1 mmol/L (3.5-5.1); Sodium 137 mmol/L (135-145); eGFR > 60.00
[2025-07-09 07:35] VITALS: BP 98/55
[2025-07-09] MEDS: TOPAMAX 75 MG PO (07:59)
[2025-07-09] MEDS: CRESTOR 5 MG PO (07:59)
[2025-07-09] MEDS: RELISTOR 12 MG SC (08:00)
[2025-07-09] MEDS: PROTONIX 40 MG PO (08:00)
[2025-07-09] MEDS: INVANZ 60 MG IV (08:03)
--- NOTE | 2025-07-09 10:07 | W.PN.CRS1 ---
Today's Communication / Plan
-
dispo planning
Assessment/Plan
-
50 yo with a h/o diverticulitis now POD#w robotic sigmoidectomy
Doing well. tolerating diet with good bowel recovery
AFVSS
Leukocytosis resolved, h/h stable. Renal function normal
-Continue LRD
-OR pathology pending
-Declined lovenox for DVT prophylaxis. OOB/ ambulating
-Pain control: analgesics prn, declines narcotics
-ALFRED drain removed
-Dispo planning
Subjective Data
Procedure
07/07/2025- robotic sigmoidectomy
Subjective Data
Date of Service: July 09, 2025
Pt seen and examined at bedside with Dr. Samayoa. Denies n/v. Tolerating diet. Passing stools, flatus. Minimal discomfort at incisions. voiding well.
Objective Data
-
Vital Signs
Temp Pulse Resp BP Pulse Ox
98.7 F 63 17 98/55 96
07/09/25 07:35 07/09/25 07:35 07/09/25 07:35 07/09/25 07:35 07/09/25 07:35
Intake & Output
07/08/25 07/09/25 07/10/25
06:59 06:59 06:59
Intake Total 1980 / 1979 480 / 480
Output Total 1520 / 1520 515 / 515
Balance 460 / 460 -35 / -35
Intake:
Oral fluids 720 / 720 480 / 480
IV fluids (Total) 1260 / 1260
Normosol 300 / 300
Output:
Drain Output (Total)
Right Lower Abdomen Lonnie-
Sal[place]
Urine, [place] 1425 / 1425 450 / 450
Lab Results
07/09/25 05:07
07/09/25 05:07
Physical Exam
-
General: No Acute Distress and AOx3
Abdomen: Soft, Non Distended and Non Tender
Skin: Warm and Dry
Incision: Clear, Dry, Intact and Other (ALFRED with ssf (removed))
--- NOTE | 2025-07-09 10:11 | W.DS.TRANS ---
Addendum entered and electronically signed by JUAN R Weiss 07/10/25 14:22:
dictated #[id number]
Original Note:
DC Summary - [facility]
-
Discharge Instructions:
Sleep Apnea Risk Low
Discharge Diagnosis/Procedures robotic sigmiodectomy
Diet Low Residue
Activity No strenuous activity
Additional Activity No lifting over 10lbs (gallon of milk)
Driving Restrictions No driving for 1 week
Bathing Restrictions OK to Shower
Wound Care Allow glue to naturally fall off. Do not pick at
incisions.
Instructions: Low-fiber diet
Stand-Alone Forms:
Changes to Home Medications: No
Discharge Medications:
DC Medications w/original date entered in [employer]
estradiol 0.05 mg/24 hr weekly transdermal patch 1 patch transdermal QWEEK Hormonal Agent 07/01/25
famotidine 20 mg tablet 20 mg PO DAILY Gastrointestinal Issue 07/01/25
magnesium 200 mg tablet 200 mg PO HS Supplement 07/01/25
rosuvastatin 5 mg tablet 5 mg PO DAILY High Cholesterol 07/01/25
tirzepatide 2.5 mg/0.5 mL subcutaneous pen injector (Mounjaro) 2.5 mg SC QWEEK Diabetes 07/01/25
topiramate 50 mg tablet 75 mg PO BID migraines 07/01/25
ubrogepant 100 mg tablet (Ubrelvy) 100 mg PO PRN PRN MIGRAINE 07/01/25
Home Medication Changes
Pending Results: No
== END 2025-07-09 10:40 | disposition home or self-care (01) | DRG 330 ==
LOC: 2 SOUTH 06:11
PROVIDERS: Physician Assistant; ADMITTING PHYSICIAN Surgery; FAMILY PHYSICIAN Physician Assistant Medical
PROC: 8E0W8CZ Robotic Assisted Procedure of Trunk Region, Via Natural or Artificial Opening Endoscopic (ICD-10-PCS; 2025-07-08)
PROC: 0DTNFZZ Resection of Sigmoid Colon, Via Natural or Artificial Opening With Percutaneous Endoscopic Assistance (ICD-10-PCS; 2025-07-08)
DX: K57.32 Diverticulitis of large intestine without perforation or abscess without bleeding (principal); Q43.8 Other specified congenital malformations of intestine; N73.6 Female pelvic peritoneal adhesions (postinfective); Z88.8 Allergy status to other drugs, medicaments and biological substances
CPT/HCPCS: 80048; 80053; 83036; 83735; 85025; 85027; 85610; 85730; 86850; 86900; 86901; 88307; 93005; J1335